=== PATIENT | female | born 1960 ===

== ENCOUNTER → 2019-09-13 | Outpatient (CLI) | payer OTHER ==
--- NOTE | 2019-09-13 14:28 | RAD ---
Bilateral lower extremity venous doppler ultrasound History: Numbness and tingling in the legs bilaterally Comparison: None Findings: Multiple grayscale, color, and duplex spectral analysis sonographic images were acquired of the bilateral lower extremity veins to evaluate for the presence of DVT. There is normal phasicity. Normal compression, color-flow, and augmentation is demonstrated from the bilateral common femoral to the popliteal veins. There is normal color flow of the proximal greater saphenous veins. There is normal color flow of segments of the calf veins. There is complex right popliteal fossa fluid collection about 5.3 x 1.3 x 2.2 cm. Impression: 1. There is no evidence of deep venous thrombosis from the bilateral common femoral to the popliteal veins. 2. There is complex right popliteal fossa fluid collection. Electronically signed by: Kyle Schulz MD (09/13/2019 2:25 PM) [id number]
== END | disposition home or self-care (01) ==
LOC: US 13:35
PROVIDERS: ATTEND Psychiatry & Neurology Neurology
DX: I82.409 Acute embolism and thrombosis of unspecified deep veins of unspecified lower extremity (principal); R20.2 Paresthesia of skin
CPT/HCPCS: 93970